=== PATIENT | male | born 1950 | race Caucasian/White ===

== ENCOUNTER 2022-11-16 05:57 | Inpatient (IN) | payer OTHER, MEDICAID ==
[~2022-11-16] VITALS: Ht 170.2 cm; Wt 99.8 kg
[2022-11-16 06:05] VITALS: BP_SYST 153
[2022-11-16] MEDS ORDERED: MORPHINE 2 MG/ML INJ. SYRINGE IVP ONE (06:30)
[2022-11-16 06:54] LABS: BASOPHILS # (AUTO) 0.1 K/uL (0.0-0.2); BASOPHILS % (AUTO) 0.6 % (0.0-2.0); EOSINOPHILS # (AUTO) 0.1 K/uL (0.0-0.4); EOSINOPHILS % (AUTO) 0.9 % (0.0-4.0); HEMATOCRIT 41.9 % (36-54); LYMPHOCYTES # (AUTO) 0.6 K/uL (1.0-5.5); LYMPHOCYTES % (AUTO) 5.9 % (20.5-51.5); MEAN CORPUSCULAR HEMOGLOBIN 32 pg (27-31); MEAN CORPUSCULAR HGB CONC 33 % (32-36); MEAN CORPUSCULAR VOLUME 95 fL (79.0-98.0); MONOCYTES # (AUTO) 0.4 K/uL (0.0-1.0); MONOCYTES % (AUTO) 4.2 % (1.7-9.3); NEUTROPHILS # (AUTO) 9.3 K/uL (1.8-7.7); NEUTROPHILS % (AUTO) 88.4 % (40.0-70.0); PLATELET COUNT (AUTO) 195 K/uL (130-430); RED BLOOD CELL COUNT(AUTO) 4.41 MIL/uL (4.2-6.2); RED CELL DISTRIBUTION WIDTH 15.3 % (9.0-15.0); WHITE BLOOD COUNT (AUTO) 10.6 K/uL (4.8-10.8)
[2022-11-16 07:17] LABS: ANION GAP 8 (5-15); CALCIUM 9.1 mg/dL (8.4-11.0); CHLORIDE 105 mmol/L (98-107); CREATININE 1.58 mg/dL (0.55-1.30); GLUCOSE 255 mg/dL (70-99); UREA NITROGEN, BLOOD 26 mg/dL (8-21)
[2022-11-16 07:24] LABS: ALANINE AMINOTRANSFERASE 114 U/L (12-78); ALBUMIN 3.2 g/dL (3.4-4.8); ASPARTATE AMINOTRANSFERASE 128 U/L (10-37); C-REACTIVE PROTEIN QUANT 1.5 mg/dL (0-0.5); LACTATE DEHYDROGENASE 211 U/L (85-227); TOTAL BILIRUBIN 1.2 mg/dL (0.0-1.0)
[2022-11-16 07:53] LABS: LIPASE 10753 U/L (73-393)
[2022-11-16 07:55] LABS: AMYLASE 875 U/L (0-100)
[2022-11-16 08:12] LABS: ACETONE, SERUM NEGATIVE (NEGATIVE)
[2022-11-16 09:16] LABS: BILIRUBIN,URINE NEGATIVE (NEGATIVE); BLOOD, URINE NEGATIVE (NEGATIVE); COLOR,URINE YELLOW (YELLOW); GLUCOSE,URINE 3+ (NEGATIVE); KETONES,URINE NEGATIVE (NEGATIVE); LEUKOCYTE ESTERASE ,URINE 1+ (NEGATIVE); NITRITE, URINE NEGATIVE (NEGATIVE); PROTEIN URINE TRACE (NEGATIVE)
[2022-11-16 09:18] LABS: CLARITY/URINE SLIGHTLY HAZY (CLEAR)
[2022-11-16] MEDS ORDERED: ONDANSETRON HCL 4 MG/2 ML VIAL IVP PRN (09:30)
[2022-11-16 09:33] LABS: BACTERIA,URINE MODERATE /HPF (None Seen); MUCUS,URINE 1+ /LPF (None Seen); RBC,URINE NONE SEEN /HPF (0-3)
[2022-11-16] MEDS: D5/0.45 NS 1,000 ML IV SCH ×2 (10:34→17:59)
[2022-11-16] MEDS ORDERED: FERR236T3 PO (18:22)
[2022-11-16] MEDS ORDERED: ALBMDI INH (18:22)
[2022-11-16] MEDS ORDERED: AMIO100T4 PO (18:22)
[2022-11-16] MEDS ORDERED: LIP40 PO (18:22)
[2022-11-16] MEDS ORDERED: MONT-40 PO (18:22)
[2022-11-16] MEDS ORDERED: BACL10TA PO (18:22)
[2022-11-16] MEDS ORDERED: CYAN250010 PO (18:22)
[2022-11-16] MEDS ORDERED: TAMS-11 PO (18:22)
[2022-11-16] MEDS ORDERED: APIX5TAB4 PO (18:22)
[2022-11-16] MEDS ORDERED: MAGN400T10 PO (18:22)
[2022-11-16] MEDS ORDERED: GABA-529 PO (18:22)
[2022-11-16] MEDS ORDERED: DOCU-144 PO (18:22)
[2022-11-16] MEDS ORDERED: LEVO88TA5 PO (18:22)
[2022-11-16] MEDS ORDERED: AMLO5TAB4 PO (18:22)
[2022-11-16] MEDS ORDERED: VITA250012 PO (18:22)
[2022-11-16] MEDS ORDERED: COR6.25 PO (18:22)
[2022-11-16] MEDS ORDERED: PRO40 PO (18:22)
[2022-11-16] MEDS ORDERED: ALLO100T PO (18:22)
[2022-11-16 18:45] VITALS: BP_SYST 163
[2022-11-16 20:00] VITALS: BP_SYST 129
[2022-11-16 20:30] VITALS: BP_SYST 129
[2022-11-16] MEDS: HYDROmorphone 1 MG/ML INJ. CARTRIDGE IVP PRN (21:23)
[2022-11-17] MEDS: D5/0.45 NS 1,000 ML IV SCH ×3 (02:30→17:30)
[2022-11-17 04:00] VITALS: BP_SYST 136
[2022-11-17] MEDS: HYDROmorphone 1 MG/ML INJ. CARTRIDGE IVP PRN (06:36)
[2022-11-17 07:21] LABS: BASOPHILS % (AUTO) 0.4 % (0.0-2.0); EOSINOPHILS # (AUTO) 0.4 K/uL (0.0-0.4); EOSINOPHILS % (AUTO) 4.9 % (0.0-4.0); HEMATOCRIT 39.2 % (36-54); HEMOGLOBIN 13.4 g/dL (14.0-18.0); LYMPHOCYTES # (AUTO) 1.1 K/uL (1.0-5.5); LYMPHOCYTES % (AUTO) 12.5 % (20.5-51.5); MEAN CORPUSCULAR HEMOGLOBIN 32 pg (27-31); MEAN CORPUSCULAR HGB CONC 34 % (32-36); MEAN CORPUSCULAR VOLUME 94 fL (79.0-98.0); MONOCYTES # (AUTO) 0.5 K/uL (0.0-1.0); MONOCYTES % (AUTO) 5.9 % (1.7-9.3); NEUTROPHILS # (AUTO) 6.5 K/uL (1.8-7.7); NEUTROPHILS % (AUTO) 76.3 % (40.0-70.0); PLATELET COUNT (AUTO) 173 K/uL (130-430); RED BLOOD CELL COUNT(AUTO) 4.18 MIL/uL (4.2-6.2); RED CELL DISTRIBUTION WIDTH 14.6 % (9.0-15.0); WHITE BLOOD COUNT (AUTO) 8.5 K/uL (4.8-10.8)
[2022-11-17 07:29] LABS: ANION GAP 6 (5-15); CALCIUM 8.5 mg/dL (8.4-11.0); CHLORIDE 105 mmol/L (98-107); CREATININE 1.18 mg/dL (0.55-1.30); GLUCOSE 128 mg/dL (70-99); LIPASE 2547 U/L (73-393); UREA NITROGEN, BLOOD 14 mg/dL (8-21)
[2022-11-17 08:00] VITALS: BP_SYST 118
[2022-11-17] MEDS ORDERED: FLUT16SP16 NS (09:16)
[2022-11-17] MEDS ORDERED: *HEPARIN PER PHARMACY XX ONE (11:00)
[2022-11-17] MEDS ORDERED: FLUTICASONE PROPIONATE 50 mCg/SPRAY 16 GM NS ONE (11:00)
[2022-11-17 11:51] VITALS: BP_SYST 117
[2022-11-17] MEDS ORDERED: HEPARIN SODIUM,PORCINE 2000 UNITS/0.4 ML BOLUS IVP PRN (12:00)
[2022-11-17] MEDS ORDERED: HEPARIN SODIUM,PORCINE 3000 UNITS/0.6 ML BOLUS IVP PRN (12:00)
[2022-11-17] MEDS ORDERED: POTASSIUM CHLORIDE 20 MEQ in NS 250 ML IV ONE (12:00)
[2022-11-17 16:31] VITALS: BP_SYST 146
[2022-11-17] MEDS: HEPARIN 25,000 UNITS in 250 ML PREMIX IV PRN (18:58)
[2022-11-17 20:00] VITALS: BP_SYST 139
[2022-11-18 00:20] VITALS: BP_SYST 139
[2022-11-18] MEDS: HYDROmorphone 1 MG/ML INJ. CARTRIDGE IVP PRN (00:44)
[2022-11-18] MEDS: D5/0.45 NS 1,000 ML IV SCH ×2 (02:28→09:30)
[2022-11-18 06:53] LABS: BASOPHILS # (AUTO) 0.1 K/uL (0.0-0.2); BASOPHILS % (AUTO) 1.1 % (0.0-2.0); EOSINOPHILS # (AUTO) 0.5 K/uL (0.0-0.4); EOSINOPHILS % (AUTO) 5.8 % (0.0-4.0); HEMATOCRIT 38.3 % (36-54); HEMOGLOBIN 13.4 g/dL (14.0-18.0); LYMPHOCYTES # (AUTO) 1.2 K/uL (1.0-5.5); LYMPHOCYTES % (AUTO) 15.1 % (20.5-51.5); MEAN CORPUSCULAR HEMOGLOBIN 33 pg (27-31); MEAN CORPUSCULAR HGB CONC 35 % (32-36); MEAN CORPUSCULAR VOLUME 94 fL (79.0-98.0); MONOCYTES # (AUTO) 0.5 K/uL (0.0-1.0); MONOCYTES % (AUTO) 6.2 % (1.7-9.3); NEUTROPHILS # (AUTO) 5.9 K/uL (1.8-7.7); NEUTROPHILS % (AUTO) 71.8 % (40.0-70.0); PLATELET COUNT (AUTO) 172 K/uL (130-430); RED BLOOD CELL COUNT(AUTO) 4.09 MIL/uL (4.2-6.2); RED CELL DISTRIBUTION WIDTH 14.6 % (9.0-15.0); WHITE BLOOD COUNT (AUTO) 8.2 K/uL (4.8-10.8)
[2022-11-18 07:39] VITALS: BP_SYST 145
[2022-11-18 07:40] LABS: ALANINE AMINOTRANSFERASE 48 U/L (12-78); ALBUMIN 2.8 g/dL (3.4-4.8); ANION GAP 11 (5-15); ASPARTATE AMINOTRANSFERASE 25 U/L (10-37); CALCIUM 8.5 mg/dL (8.4-11.0); CHLORIDE 102 mmol/L (98-107); CREATININE 1.02 mg/dL (0.55-1.30); GLUCOSE 112 mg/dL (70-99); LIPASE 560 U/L (73-393); TOTAL BILIRUBIN 1.1 mg/dL (0.0-1.0); UREA NITROGEN, BLOOD 10 mg/dL (8-21)
[2022-11-18] MEDS ORDERED: FLUTICASONE PROPIONATE 50 mCg/SPRAY 16 GM NS SCH (09:00)
[2022-11-18] MEDS: HEPARIN 25,000 UNITS in 250 ML PREMIX IV PRN (12:35)
[2022-11-18 12:57] VITALS: BP_SYST 142
[2022-11-18 16:04] VITALS: BP_SYST 126
[2022-11-18 16:53] VITALS: BP_SYST 143
== END 2022-11-18 16:30 | disposition home or self-care (01) | DRG 439 ==
LOC: SED 05:57 → SMU 09:29
PROVIDERS: ADMIT Specialist; ATTEND Specialist
DX: K85.10 Biliary acute pancreatitis without necrosis or infection (principal); K80.10 Calculus of gallbladder with chronic cholecystitis without obstruction; N17.9 Acute kidney failure, unspecified; I48.91 Unspecified atrial fibrillation; E11.51 Type 2 diabetes mellitus with diabetic peripheral angiopathy without gangrene; E78.5 Hyperlipidemia, unspecified; E03.9 Hypothyroidism, unspecified; Z20.822 Contact with and (suspected) exposure to COVID-19; I10 Essential (primary) hypertension; Z87.891 Personal history of nicotine dependence; Z80.3 Family history of malignant neoplasm of breast; Z89.512 Acquired absence of left leg below knee; Z79.01 Long term (current) use of anticoagulants
CPT/HCPCS: 36415; 71045; 74181; 76376; 80048; 80053; 81000; 82009; 82150; 83605; 83615; 83690; 83735; 83880; 84484; 85025; 85730-TC; 86140; 87086; 93005; 93306; 96361; 96374; 99285; J1170; J1644; J2270; J3480; J7050